=== PATIENT | female | born 1965 | race Caucasian/White ===

== ENCOUNTER 2017-03-15 06:02 | Emergency (ER) | payer OTHER ==
[2017-03-15 06:13] VITALS: RESP 18; TEMP 98
[2017-03-15] MEDS ORDERED: Oxycodone/Acetaminophen 5/325 mg Tab PO STA (06:29)
[2017-03-15] MEDS ORDERED: Oxycodone/Acetaminophen 5/325 mg Tab ONE (06:35)
--- NOTE | 2017-03-15 06:40 | C.PDOC ---
History Of Present Illness 51 year old female presents to the ER with a complaint of intermittent left distal upper extremity pain for the past few days that worsened today. Denies weakness or numbness of the left upper extremity. Patient reports the pain woke her up and states it feels like throbbing and numbness from the distal forearm, to wrist and fingers. Patient is left hand dominate and notes she was doing chores all day yesterday. Time Seen by Provider: 03/15/17 06:24 Chief Complaint (Nursing): Upper Extremity Problem/Injury History Per: Patient History/Exam Limitations: no limitations Onset/Duration Of Symptoms: Days, Intermittent Episodes, Worse Since (Today) Current Symptoms Are (Timing): Still Present Quality: Other (Throbbing) Exacerbating Factor(s): Strenuous Use Of Affected Area Recent travel outside of the [place]: No Past Medical History Reviewed: Historical Data, Nursing Documentation, Vital Signs Vital Signs: Last Vital Signs Temp 98 F 03/15/17 06:09 Pulse 96 H 03/15/17 06:09 Resp 18 03/15/17 06:09 BP 137/84 03/15/17 06:09 Pulse Ox 99 03/15/17 06:47 - Medical History PMH: No Chronic Diseases Surgical History: No Surg Hx Family History: States: Unknown Family Hx - Social History Hx Alcohol Use: No Hx Substance Use: No - Immunization History Hx Tetanus Toxoid Vaccination: No Hx Influenza Vaccination: No Hx Pneumococcal Vaccination: No Review Of Systems Constitutional: Negative for: Fever, Chills Cardiovascular: Negative for: Chest Pain, Palpitations Respiratory: Negative for: Cough, Shortness of Breath Musculoskeletal: Positive for: Hand Pain Neurological: Negative for: Weakness, Numbness Physical Exam - Physical Exam Appears: Non-toxic, No Acute Distress Skin: Normal Color, Warm, Dry Head: Atraumatic, Normacephalic Eye(s): bilateral: Normal Inspection Oral Mucosa: Moist Chest: Symmetrical, No Tenderness Cardiovascular: Rhythm Regular Respiratory: Normal Breath Sounds, No Rales, No Rhonchi, No Wheezing Extremity: Other (Subjecive numbness to fingertips of digits 1-4 excluding 5th digit. No swelling, skin changes, or signs of cellulitis.) Pulses: Left Radial: Normal, Right Radial: Normal Neurological/Psych: Oriented x3, Normal Speech, Normal Motor, Normal Sensation ED Course And Treatment O2 Sat by Pulse Oximetry: 99 (Room air) Pulse Ox Interpretation: Normal Medical Decision Making Medical Decision Making: Plan: * Percocet * Toradol Disposition Counseled Patient/Family Regarding: Diagnosis - Disposition Disposition Time: 07:04 Condition: STABLE Forms: [facility] (Dutch) - Clinical Impression Clinical Impression: Muscle strain, Carpal tunnel syndrome - Scribe Statement The provider has reviewed the documentation as recorded by the Scribe Harvinder Stallworth All medical record entries made by the Scribe were at my direction and personally dictated by me. I have reviewed the chart and agree that the record accurately reflects my personal performance of the history, physical exam, medical decision making, and the department course for this patient. I have also personally directed, reviewed, and agree with the discharge instructions and disposition. Physician Patient Turnover Patient Signed Over To: Kristyn Pink Handoff Comments: pt with severe left forearm pain and numbness
[2017-03-15 08:14] VITALS: BP 111/71; PULSE 75; O2SAT 96
== END 2017-03-15 08:52 | disposition home or self-care (01) ==
LOC: C.ER 06:02
DX: S66.912A Strain of unspecified muscle, fascia and tendon at wrist and hand level, left hand, initial encounter (principal); X58.XXXA Exposure to other specified factors, initial encounter; G56.02 Carpal tunnel syndrome, left upper limb
CPT/HCPCS: 96372; 99285; J1885

== ENCOUNTER 2017-06-29 12:50 | Emergency (ER) | payer SELFPAY ==
[2017-06-29 13:50] VITALS: BMI 24.4
[2017-06-29 13:54] VITALS: BP 105/70; PULSE 94; RESP 18; TEMP 97.9; O2SAT 96
--- NOTE | 2017-06-29 14:27 | C.PDOC ---
History Of Present Illness REQUESTING PREDNISONE FOR RA PAIN. GEN JOINT PAIN, NO IMPROVE W SULFASALAZINE X 3 WEEKS. NO OTHER PAIN MEDS TRIED. PS PREDNISONE WOULD "GREATLY IMPROVE" HER SX WHEN W SIM PRIOR EPISODES. NO TRAUMA, OTHER ASSOC SX EXAM NONTOXIC EXT AROM W PAIN NO DEFORM NEURO INTACT REMAINDER NEG Time Seen by Provider: 06/29/17 13:57 Chief Complaint (Nursing): Pain, Chronic History Per: Patient History/Exam Limitations: no limitations Onset/Duration Of Symptoms: Days Current Symptoms Are (Timing): Better Severity: Moderate Past Medical History Reviewed: Historical Data, Nursing Documentation, Vital Signs Vital Signs: Last Vital Signs Temp 97.9 F 06/29/17 13:50 Pulse 94 H 06/29/17 13:50 Resp 18 06/29/17 13:50 BP 105/70 06/29/17 13:50 Pulse Ox 96 06/29/17 14:55 - Medical History PMH: Arthritis (rheumatoid ), Hypercholesterolemia Surgical History: No Surg Hx Family History: States: No Known Family Hx - Social History Hx Tobacco Use: No Hx Alcohol Use: No Hx Substance Use: No - Immunization History Hx Tetanus Toxoid Vaccination: No Hx Influenza Vaccination: No Hx Pneumococcal Vaccination: No Review Of Systems Except As Marked, All Systems Reviewed And Found Negative. Musculoskeletal: Positive for: Other (generalized joint pain) Neurological: Negative for: Weakness, Numbness Physical Exam - Physical Exam Appears: Non-toxic Skin: Normal Color, Warm Head: Atraumatic, Normacephalic Eye(s): bilateral: Normal Inspection Extremity: Normal ROM (AROM with pain), No Deformity Neurological/Psych: Oriented x3, Normal Speech ED Course And Treatment O2 Sat by Pulse Oximetry: 96 (RA) Pulse Ox Interpretation: Normal Medical Decision Making Medical Decision Making: Plan: --Motrin PO --Prednisone PO Disposition Counseled Patient/Family Regarding: Diagnosis, Need For Followup, Rx Given - Disposition Referrals: [facility] [Outside] [facility] [Outside] Liberty Golden MD [Staff Provider] - Disposition: HOME/ ROUTINE Disposition Time: 14:54 Condition: IMPROVED Prescriptions: Ibuprofen [Motrin] 600 mg PO Q6 #30 tab predniSONE [Prednisone] 60 mg PO DAILY #12 tab Instructions: Chronic Pain (DC) Forms: [employer] (Latvian) Print Language: TAIWANESE - Clinical Impression Clinical Impression: Rheumatoid arthritis flare, Chronic pain - Scribe Statement The provider has reviewed the documentation as recorded by the Geovannyibe Evonne Arteaga Provider Attestation: All medical record entries made by the Geovannyibe were at my direction and personally dictated by me. I have reviewed the chart and agree that the record accurately reflects my personal performance of the history, physical exam, medical decision making, and the department course for this patient. I have also personally directed, reviewed, and agree with the discharge instructions and disposition.
== END 2017-06-29 15:01 | disposition home or self-care (01) ==
LOC: C.ER 12:50
DX: G89.29 Other chronic pain (principal); M06.9 Rheumatoid arthritis, unspecified; E78.00 Pure hypercholesterolemia, unspecified

== ENCOUNTER 2018-07-01 08:15 | Outpatient (CLI) | payer OTHER | END 2018-07-01 08:16 | disposition home or self-care (01) | LOC: C.LAB 08:15 | DX: E11.00 Type 2 diabetes mellitus with hyperosmolarity without nonketotic hyperglycemic-hyperosmolar coma (NKHHC) (principal); N39.0 Urinary tract infection, site not specified ==

== ENCOUNTER 2018-07-21 08:23 | Outpatient (CLI) | payer OTHER | END 2018-07-21 08:24 | disposition home or self-care (01) | LOC: C.LAB 08:23 | DX: E78.2 Mixed hyperlipidemia (principal); R73.02 Impaired glucose tolerance (oral) ==